=== PATIENT | female | born 2000 | race Caucasian/White ===

== ENCOUNTER 2019-02-21 20:37 | Emergency (ER) | payer BC ==
--- NOTE | 2019-02-21 20:59 | Emergency Department Record ---
History of Present Illness - General Chief complaint: Extremity Problem Stated complaint: LT INDEX FINGER INFECTION Time Seen by Provider: 02/21/19 20:44 Source: Patient Mode of Arrival: Ambulatory Limitations: No limitations - History of Present Illness Initial comments: Right hand dominate female with pain to left index finger onset 6 days ago. Denies trauma but states she does "bite at her nails". No DM. No hx of similar. Seen at Urgent Care 3 days ago and started on Keflex TID two days ago. Local pain. No fever. - Related Data Home Medications Medication Instructions Recorded Confirmed Last Taken Hydrocodone/APAP 5/325Mg [[place] 1 tab PO QHS PRN 02/21/19 02/21/19 Unknown 5Mg/325Mg] Allergies Allergy/AdvReac Type Severity Reaction Status Date / Time No Known Drug Allergies Allergy Verified 02/21/19 20:54 Review of Systems Constitutional: Denies: Chills, Fever, Weakness Eyes: Denies: Eye discharge ENT: Denies: Congestion Respiratory: Denies: Cough Cardiovascular: Denies: Chest pain Endocrine: Denies: Fatigue Gastrointestinal: Denies: Abdominal pain Genitourinary: Denies: Abnormal menses Skin: Reports: As per HPI Neurological: Denies: Confusion, Headache, Weakness Psychiatric: Denies: Anxiety Hematological/Lymphatic: Denies: Anemia Physical Exam - General General Appearance: Alert, Oriented x3, Cooperative - Head Head exam: Atraumatic - Eye Eye exam: Normal appearance, PERRL, EOMI - ENT ENT exam: Normal exam - Neck Neck exam: Normal inspection - Extremities Extremities exam: Tenderness (distal left IF with local erythema and tenderness to the pad of digit. Some pointing radial aspect with bloody drainage. Nail intact. No welling to DIP or proximal finger. ) - Neurological Neurological exam: Alert, Normal gait, Oriented X3 - Psychiatric Psychiatric exam: Normal affect, Normal mood - Skin Type of lesion: Abscess (see finger exam) Course Vital Signs 02/21/19 20:44 Temperature 98.2 F Pulse Rate [ 132 H Pulse Ox Probe] Respiratory 22 Rate Blood Pressure 170/127 [Left Arm] Pulse Ox 99 - Reevaluation(s) Reevaluation #1: 02/21/19 22:19 Pt with left IF swelling and pain. Digit block with marcaine and lido. Incised with #11 blade with only bloody fluid return. IV Unasyn given. XRay neg. Pt to see Dr. Lamb tomorrow in office OR to return here for recheck if unable to be seen in office. Attempts to contact Dr. Lamb unsuccessful. Pt to continue her Keflex 500mg TID. Has [place] at home for pain. Agrees with plan. Procedures - Nerve Block Consent Obtained: Verbal consent Local Anesthetic Used: Marcaine 0.25% Amount of anesthesia used: 2 Side: Left Nerve Blocks: Digital Procedure Successful: Yes Complications: None Patient Tolerated Procedure: Good Disposition Disposition: Discharge Clinical Impression: Abscess of left index finger, [place] of finger of left hand Disposition: Home, Self-Care Condition: (2) Stable Instructions: Abscess (ED), Warm Compress or Soak (ED) Additional Instructions: Continue your antibiotics as instructed. Use your [place] for pain. Warm soaks as instructed. Call Dr. Lamb's office in the AM for appointment tomorrow without fail. If unable to see Dr. Lamb - hand surgeon - tomorrow return here for recheck without fail. Return here at jessica time if increasepain, swelling, or concerns. Referrals: JEREIMAS LAMB M.D. [MEDICAL DOCTOR] - Forms: Patient Portal Access Time of Disposition: 22:24 Quality - Quality Measures Quality Measures: N/A - Blood Pressure Screening Does Patient Have Any of the Following: No Blood Pressure Classification: Hypertensive Reading Systolic Measurement: 170 Diastolic Measurement: 127 Screening for High Blood Pressure: < Pre-Hypertensive BP, F/U Documented > [G8950] Pre-Hypertensive Follow-up Interventions: Follow-up with rescreen every year.
[2019-02-21] MEDS ORDERED: SULBACTAM IM ONE (21:20)
[2019-02-21] MEDS ORDERED: AMPICILLIN SOD IM ONE (21:20)
[2019-02-21] MEDS ORDERED: AMPICILLIN SODIUM/SULBACTAM NA 1.5 G in 0.9 % SODIUM CHLORIDE 100ML 100 ML IVPB ONE (21:28)
--- NOTE | 2019-02-22 12:53 | RADIOLOGY REPORT ---
EXAM: LEFT INDEX FINGER HISTORY: SWOLLEN AND PAINFUL DISTAL INDEX FINGER, INFECTION. TECHNIQUE: Three views of the left index finger were obtained. Comparison: None. FINDINGS: Mild soft tissue swelling distally involving the index finger. The underlying bones appear intact with no fracture or dislocation evident. No destructive lesion seen. IMPRESSION: 1. MILD SOFT TISSUE SWELLING DISTALLY. 2. NO DEFINITE BONY ABNORMALITY OF THE LEFT INDEX FINGER IDENTIFIED. JOB NUMBER: [id number] MTDD
== END 2019-02-21 22:34 | disposition home or self-care (01) ==
LOC: ER 20:37
DX: L03.012 Cellulitis of left finger (principal)
CPT/HCPCS: 26010; 73140; 81025; 96365; 99284; J0295

== ENCOUNTER 2019-02-22 12:24 | Emergency (ER) | payer BC ==
[2019-02-22] MEDS ORDERED: AMPICILLIN SODIUM/SULBACTAM NA 3 G in 0.9 % SODIUM CHLORIDE 100ML 100 ML IVPB ONE (12:42)
[2019-02-22] MEDS ORDERED: MORPHINE SULFATE 5 MG/ML VIAL IVP ONE (12:42)
--- NOTE | 2019-02-22 12:42 | Emergency Department Record ---
History of Present Illness - General Chief Complaint: Wound, check Stated Complaint: RECHECK Time Seen by Provider: 02/22/19 12:36 Source: Patient, Family Mode of arrival: Ambulatory Limitations: No limitations - History of Present Illness Initial Comments: 18 yo female presents for a recheck of her left finger infection. She was seen in the ED last night. A digital block was performed and an I and D. She returns today for a recheck. This morning the finger began to drain. She states the pain and swelling are now improving since the drainage started. No extension of the initial infection. No pain up the finger or into the hand. MD Complaint: Wound re-check Onset/Timin -: Days(s) Initial Visit For: Abscess Returns Today for: Wound recheck Symptoms Since Prior Visit: Improved Associated Symptoms: None Treatments Prior to Arrival: Given antibiotics on initial visit, Other - Related Data Allergies Allergy/AdvReac Type Severity Reaction Status Date / Time No Known Drug Allergies Allergy Verified 02/21/19 20:54 Travel Screening - Travel/Exposure Within Last 30 Days Have you traveled within the last 30 days?: No Review of Systems Constitutional: Denies: Chills, Fever, Malaise, Weakness Eyes: Denies: Eye discharge ENT: Denies: Congestion Respiratory: Denies: Cough Cardiovascular: Denies: Chest pain, Syncope Endocrine: Denies: Fatigue Gastrointestinal: Denies: Abdominal pain, Diarrhea, Nausea, Vomiting Genitourinary: Denies: Dysuria, Urgency Musculoskeletal: Reports: Arthralgia. Denies: Back pain Skin: Reports: Change in color Neurological: Denies: Numbness, Weakness Psychiatric: Denies: Anxiety Hematological/Lymphatic: Denies: Easy bleeding, Easy bruising Past Medical History - SOCIAL HISTORY Smoking Status: Never smoker - RESPIRATORY Hx Respiratory Disorders: Yes Hx Asthma: Yes - CARDIOVASCULAR Hx Cardio Disorders: No - NEURO Hx Neuro Disorders: Yes Hx Headaches: Yes - GI Hx GI Disorders: No - Hx Genitourinary Disorders: No - ENDOCRINE Hx Endocrine Disorders: No - MUSCULOSKELETAL Hx Musculoskeletal Disorders: No - PSYCH Hx Psych Problems: Yes Hx Anxiety: Yes (undiagnosed) - HEMATOLOGY/ONCOLOGY Hx Hematology/Oncology Disorders: No Family Medical History Any Significant Family History?: Yes Hx Cancer: Mother, Grandparents Hx Dementia: Grandparents Hx Resp Disorders: Grandparents Physical Exam - General General Appearance: Alert, Oriented x3, Cooperative, No acute distress Limitations: No limitations - Head Head exam: Atraumatic - Eye Eye exam: Normal appearance - ENT ENT exam: Normal exam Ear exam: Normal external inspection Nasal Exam: Normal inspection Mouth exam: Normal external inspection - Cardiovascular Peripheral Pulses: 2+: Radial (L) - Extremities Extremities exam: Joint swelling, Normal capillary refill, Tenderness. negative: Normal inspection Image of Hand: 1 - mild swelling limited to the distal finger. Normal inspection at the MCP, Normal inspection at the PIP. The erythema starts at the dip. Mild erythema. Pus noted at the I and D site now. Nail intact. Full ROM at the MCP and PIP. Swelling limits full ROM at the DIP - Neurological Neurological exam: Alert, Oriented X3. negative: Motor sensory deficit - Psychiatric Psychiatric exam: negative: Agitated, Anxious - Skin Skin exam: Erythema Course Vital Signs 02/22/19 12:26 Temperature 97.5 F L Pulse Rate 73 Respiratory 18 Rate Blood Pressure 130/61 Pulse Ox 100 - Reevaluation(s) Reevaluation #1: 02/22/19 12:47 The finger is improving per the patient now that it is draining No extension or streaking up the hand I gently palpated and expressed pus until blood only remained She was soaked to further loosen up the scab over the I and D site and continue drainage She will continue the soaks at home with gentle massage and return PRN over the weekend if needed Additional antibiotic dose given in the ED Overall improvement noted, continue current treatment with plan to return as needed to the ED 02/22/19 13:21 The patient is doing better even after the warm soak. We discussed again home care and reasons to return to the ED over the weekend. Disposition Disposition: Discharge Clinical Impression: Abscess of left index finger Disposition: Home, Self-Care Condition: (1) Good Instructions: Abscess (ED) Additional Instructions: Warm soaks with gentle massage every 6 hours Return in 24 hours for a recheck if any concerns that you are not continuing to improve Return or be seen sooner if worse, fever, streaks up the arm or any concerns Continue your antibiotics. Forms: Patient Portal Access Time of Disposition: 13:19 Quality - Quality Measures Quality Measures: N/A - Blood Pressure Screening Does Patient Have Any of the Following: No Blood Pressure Classification: Pre-Hypertensive BP Reading Systolic Measurement: 130 Diastolic Measurement: 61 Screening for High Blood Pressure: < Pre-Hypertensive BP, F/U Documented > [G8950] Pre-Hypertensive Follow-up Interventions: Referral to alternative/primary care provider.
== END 2019-02-22 13:35 | disposition home or self-care (01) ==
LOC: ER 12:24
DX: L02.512 Cutaneous abscess of left hand (principal)
CPT/HCPCS: 99284 ×2; 96365; 96375; J0295